=== PATIENT | female | born 2000 | race African-American/Black ===

== ENCOUNTER 2021-10-10 09:37 | Emergency (ER) | payer MEDICAID, OTHER ==
[~2021-10-10] VITALS: Ht 167.6 cm; Wt 77.0 kg
[2021-10-10 10:04] VITALS: BP 123/83
[2021-10-10] MEDS ORDERED: CYCL10TA21 MT (12:46)
[2021-10-10] MEDS ORDERED: IBUP-2029 MT (12:46)
== END 2021-10-10 12:53 | disposition home or self-care (01) ==
LOC: ER 09:37
DX: S39.012A Strain of muscle, fascia and tendon of lower back, initial encounter (principal); V89.2XXA Person injured in unspecified motor-vehicle accident, traffic, initial encounter; Y93.89 Activity, other specified; Y92.89 Other specified places as the place of occurrence of the external cause; Y99.8 Other external cause status
CPT/HCPCS: 72100; 81025; 99283